=== PATIENT | female | born 1985 | race Caucasian/White ===

== ENCOUNTER → 2016-11-29 | Outpatient (CLI) | payer BC ==
[~2016-11-29] MED LIST: NITR100C3 PO; NORG1TAB14 PO; SULF-221 PO
[2016-11-29 17:53] VITALS: BP 115/61
--- NOTE | 2016-11-29 17:53 | Urgent Care T Sheet Gen (E) ---
Intake General Temperature (Fahrenheit): 98.5 Pulse: 67 Blood Pressure Systolic: 115 Blood Pressure Diastolic: 61 Respirations: 16 SPO2: 98 Description of Symptoms Patient presents with sore throat that started earlier today. Has been exposed to strep throat. Feels feverish but no documented temp. Glands feel swollen. no cough or congestion. No meds. History of Present Illness Allergies: Coded Allergies: codeine (Unverified Allergy, Mild, Rash, 02/17/15) Home Meds Active Scripts Sulfamethoxazole/Trimethoprim (Sulfamethoxazole/Trimethoprim DS 800mg/160mg)1 Each Tablet1 Each PO BID #10 TAB Prov:MEGAN VARGAS 02/06/16 Nitrofurantoin Monohyd/M-Cryst (Macrobid 100 mg Capsule)100 Mg [id number] Mg PO BID Infection #14 CAP Ref 0 Prov:MEGAN VARGAS 01/03/16 Reported Medications Norgestimate-Ethinyl Estradiol (Sprintec)1 Each Tablet1 Each PO DAILY 02/17/15 Respiratory Constitutional Symptoms: No Fever, Malaise EENTM: Throat pain Throat swelling Respiratory: No symptoms reported Cardiovascular: No symptoms reported Gastrointestinal/Abdominal: No symptoms reported All Other Systems Reviewed Remaining Systems: All other systems reviewed with negative findings Past Lfasedl-Mqfqyv-Qtjduv Hx Patient's Social History Recent foreign travel: No Surgeries/Hospitalizations Hospitalization/Surgery Hx: tear duct sx wisdom teeth Respiratory Respiratory History: None Cardiovascular Cardiovascular History: None Reproductive System Sexually Transmitted Diseases: No Gastrointestinal GI/Endocrine History: None Diabetes Diabetes: No HEENT Impaired Vision: None Hearing Impaired: None Psychosocial Behavior Disorders: None Physical Exam Physical Exam General Appearance: WD/WN Eyes, Ears, Nose, Throat Ex: TMs normal Pharyngeal erythema Other (nose is clear) Neck Exam: Supple Lymphadenopathy (anterior cervical) Respiratory Exam: Lungs clear Normal breath sounds Cardiovascular Exam: Regular rate, rhythm Progress/Orders Lab Results Labs Results: Rapid Strep (negative) Departure Urgent Care Impression Impression: Primary Impression: Viral pharyngitis Departure Disposition: HOME OR SELF-CARE Condition: Stable Referrals: Huy Nicole (PCP) Additional Instructions: rapid strep was negative Will treat symptomatically Rest. Fluids. Tylenol or Motrin as needed. Chloraseptic spray as needed Return if no better Patient understands DC instructions. All questions were answered. End of report . MEGAN VARGAS November 29, 2016 17:33
== END ==
LOC: MHUC 17:19
PROVIDERS: ATTEND Physician Assistant
DX: J02.8 Acute pharyngitis due to other specified organisms (principal)
CPT/HCPCS: 87880; 99213